=== PATIENT | male | born 1980 | race Caucasian/White ===

== ENCOUNTER 2017-12-08 10:00 | Emergency (ER) | payer OTHER ==
[2017-12-08 10:42] LABS: Basophils % (A) 0 %; Eosinophils # (A) 0.3 k/uL (0-0.7); Eosinophils % (A) 2 %; HCT 50.3 % (39.0-53.0); HGB 16.6 gm/dL (13.0-17.5); Lymphocytes # (A) 1.3 k/uL (1.0-4.8); Lymphocytes % (A) 9 %; MCV 90.6 fL (80.0-100.0); Mean Platelet Volume 6.6; Monocytes # (A) 0.6 k/uL (0-1.0); Monocytes % (A) 4 %; Neutrophils # (A) 11.9 k/uL (1.3-7.7); Neutrophils % (A) 84 %; Platelet Count 294 k/uL (150-450); RBC 5.55 m/uL (4.30-5.90); RDW 12.7 % (11.5-15.5); WBC 14.2 k/uL (3.8-10.6)
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
[2017-12-08 10:53] LABS: Partial Thromboplastin Time 25.7 sec (22.0-30.0); Prothrombin Time 9.8 sec (9.0-12.0)
[2017-12-08 10:54] LABS: ALT 59 U/L (21-72); AST 42 U/L (17-59); Alcohol <10 mg/dL; Alkaline Phosphatase 55 U/L (38-126); Anion Gap 9 mmol/L; Blood Urea Nitrogen 14 mg/dL (9-20); Carbon Dioxide 24 mmol/L (22-30); Chloride 105 mmol/L (98-107); Glucose 103 mg/dL (74-99); Potassium 4.4 mmol/L (3.5-5.1); Sodium 138 mmol/L (137-145); Total Bilirubin 0.9 mg/dL (0.2-1.3); Total Protein 6.9 g/dL (6.3-8.2)
[2017-12-08 11:11] LABS: Creatine Kinase 395 U/L (55-170)
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
[2017-12-08 11:24] LABS: Creatine Kinase MB 7.6 ng/mL (0.0-2.4); Troponin I <0.012 ng/mL (0.000-0.034)
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
[2017-12-08 11:40] LABS: Appearance,Urine Clear (Clear); Bilirubin,Urine Negative (Negative); Blood,Urine Negative (Negative); Color,Urine Yellow; Glucose,Urine (UA) Negative (Negative); Ketones,Urine Negative (Negative); Leukocyte Esterase,Urine Negative (Negative); Nitrite,Urine Negative (Negative); PH, Urine 6.5 (5.0-8.0); Protein,Urine Negative (Negative); Urobilinogen,Urine <2.0 mg/dL (<2.0)
[2017-12-08 11:55] LABS: Amphetamine Screen,Urine Detected (NotDetected); Barbiturate Screen,Urine Not Detected (NotDetected); Benzodiazepines Screen,Urine Detected (NotDetected); Cocaine Screen,Urine Not Detected (NotDetected); Methadone Screen, Urine Not Detected (NotDetected); Opiate Screen,Urine Not Detected (NotDetected); Oxycodone Screen, Urine Not Detected (NotDetected); Phencyclidine Screen,Urine Not Detected (NotDetected); Tricyclic Antidepressant,Urine Not Detected (NotDetected); Urn Cannabinoid Scrn Detected (NotDetected)
[2017-12-08] MEDS ORDERED: MORPHINE SULFATE 4 MG/ML SYRINGE IVP STA (12:14)
[2017-12-08] MEDS ORDERED: KETOROLAC 30 MG/ML 1 ML VIAL IVP STA (12:14)
[2017-12-08 12:27] VITALS: BP 129/80; PULSE 60; RESP 16; TEMP 98.1
== END 2017-12-08 12:27 | disposition home or self-care (01) ==
LOC: EC 10:00
DX: M25.511 Pain in right shoulder (principal); R07.81 Pleurodynia; M54.9 Dorsalgia, unspecified; E07.9 Disorder of thyroid, unspecified; F17.200 Nicotine dependence, unspecified, uncomplicated; Z98.890 Other specified postprocedural states; Z79.899 Other long term (current) drug therapy; Z91.013 Allergy to seafood; V89.2XXA Person injured in unspecified motor-vehicle accident, traffic, initial encounter; Y92.89 Other specified places as the place of occurrence of the external cause
CPT/HCPCS: 36415; 93005; 86900; 86901; 80053; 82550; 82553; 84484; 85025; 85610; 85730; 86850; 81003; 80306; 80320; 72125; 70450; 71260; 74177; 99285; 96374; 96375; J2270; J1885; Q9967

== ENCOUNTER 2018-11-30 19:19 | Emergency (ER) | payer OTHER ==
[2018-11-30 19:33] VITALS: TEMP 99.2
[2018-11-30] MEDS ORDERED: KETOROLAC 30 MG/ML 1 ML VIAL IVP STA (20:27)
[2018-11-30] MEDS ORDERED: methylPREDNISolone SOD SUCCI 125 MG/2 ML VIAL IV STA (20:28)
[2018-11-30] MEDS ORDERED: FAMOTIDINE 20 MG/2 ML VIAL IV STA (20:28)
[2018-11-30] MEDS ORDERED: ONDANSETRON 4 MG/2 ML VIAL IVP STA (20:28)
[2018-11-30] MEDS ORDERED: diphenhydrAMINE 50 MG/ML 1 ML VIAL IVP STA (20:28)
[2018-11-30 20:36] LABS: Basophils # (A) 0.1 k/uL (0-0.2); Basophils % (A) 1 %; Eosinophils # (A) 0.2 k/uL (0-0.7); Eosinophils % (A) 2 %; HGB 14.6 gm/dL (13.0-17.5); Lymphocytes # (A) 2.2 k/uL (1.0-4.8); Lymphocytes % (A) 16 %; MCH 30.3 pg (25.0-35.0); MCHC 33.2 g/dL (31.0-37.0); MCV 91.3 fL (80.0-100.0); Mean Platelet Volume 6.2; Monocytes # (A) 0.6 k/uL (0-1.0); Monocytes % (A) 5 %; Neutrophils # (A) 10.2 k/uL (1.3-7.7); Neutrophils % (A) 76 %; Platelet Count 303 k/uL (150-450); RBC 4.82 m/uL (4.30-5.90); RDW 12.2 % (11.5-15.5); WBC 13.5 k/uL (3.8-10.6)
[2018-11-30 20:48] LABS: Appearance,Urine Clear (Clear); Bilirubin,Urine Negative (Negative); Blood,Urine Negative (Negative); Color,Urine Yellow; Glucose,Urine (UA) Negative (Negative); Ketones,Urine Negative (Negative); Leukocyte Esterase,Urine Negative (Negative); Nitrite,Urine Negative (Negative); Protein,Urine Trace (Negative); Specific Gravity,Urine 1.031 (1.001-1.035)
[2018-11-30 20:52] LABS: ALT 54 U/L (21-72); AST 36 U/L (17-59); African American GFR (CKD) >90 (>60 ml/min/1.73 sqM); Albumin 4.6 g/dL (3.5-5.0); Alkaline Phosphatase 84 U/L (38-126); Amylase 53 U/L (30-110); Anion Gap 11 mmol/L; Blood Urea Nitrogen 15 mg/dL (9-20); Calcium 9.7 mg/dL (8.4-10.2); Carbon Dioxide 22 mmol/L (22-30); Chloride 104 mmol/L (98-107); Glucose 85 mg/dL (74-99); Sodium 137 mmol/L (137-145); Total Bilirubin 1.2 mg/dL (0.2-1.3); Total Protein 7.8 g/dL (6.3-8.2)
[2018-11-30 20:56] LABS: Potassium 4.6 mmol/L (3.5-5.1)
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
[2018-11-30 21:58] VITALS: BP 102/57; PULSE 82; RESP 16
[2018-11-30] MEDS ORDERED: AMOXIC-POT CLAV 875MG STARTER 2 EACH TABLET PO STA (22:09)
--- NOTE | 2018-11-30 22:10 | ED ---
General Adult HPI - General Chief complaint: Abdominal Pain Stated complaint: Abd Pain Time Seen by Provider: 11/30/18 19:52 Source: patient, RN notes reviewed Mode of arrival: ambulatory Limitations: no limitations - History of Present Illness Initial comments: 38-year-old male presents to the emergency department for a chief complaint of abdominal pain. This started 3 days ago. Patient states it is mostly in the lower abdomen and radiates to the left hip. Admits to several episodes of diarrhea. Admits to nausea but denies any vomiting. Denies fevers or chills. Patient has not had this pain before.Patient has no other complaints at this rudy e including shortness of breath, chest pain, vomiting, headache, or visual changes. - Related Data Home Medications Medication Instructions Recorded Confirmed Levothyroxine Sodium [Synthroid] 125 mcg PO DAILY 12/08/17 12/08/17 Phentermine HCl [Adipex-P] 37.5 mg PO DAILY 12/08/17 12/08/17 Previous Rx's Medication Instructions Recorded Amoxicillin/Potassium Clav 1 tab PO Q12HR #20 tab 11/30/18 [Augmentin 875-125 Tablet] Allergies Allergy/AdvReac Type Severity Reaction Status Date / Time shellfish derived [Shellfish] Allergy Unknown Verified 11/30/18 19:33 Review of Systems ROS Statement: Those systems with pertinent positive or pertinent negative responses have been documented in the HPI. ROS Other: All systems not noted in ROS Statement are negative. Past Medical History Past Medical History: Thyroid Disorder History of Any Multi-Drug Resistant Organisms: None Reported Past Surgical History: Orthopedic Surgery Additional Past Surgical History / Comment(s): lymph node left side removed, vidal ateral hip sx, rt rotator cuff sx Past Psychological History: Anxiety Smoking Status: Current every day smoker Past Alcohol Use History: None Reported Past Drug Use History: None Reported General Exam Limitations: no limitations General appearance: alert, in no apparent distress Head exam: Present: atraumatic, normocephalic, normal inspection Eye exam: Present: normal appearance, PERRL, EOMI. Absent: scleral icterus, conjunctival injection, periorbital swelling ENT exam: Present: normal exam, mucous membranes moist Neck exam: Present: normal inspection. Absent: tenderness, meningismus Respiratory exam: Present: normal lung sounds bilaterally. Absent: respiratory distress, wheezes, rales, rhonchi, stridor Cardiovascular Exam: Present: regular rate, normal rhythm, normal heart sounds. Absent: systolic murmur, diastolic murmur, rubs, gallop, clicks GI/Abdominal exam: Present: soft, tenderness (Patient has generalized abdominal tenderness however this is worse in the left and right lower quadrants. No guarding or rebound.), normal bowel sounds. Absent: distended, guarding, rebound, rigid Neurological exam: Present: alert Course Vital Signs 11/30/18 11/30/18 19:25 21:56 Temperature 99.2 F Pulse Rate 103 H 82 Respiratory 18 16 Rate Blood Pressure 140/85 102/57 O2 Sat by Pulse 96 98 Oximetry Medical Decision Making - Medical Decision Making Vitals are Stable. Patient is afebrile. CT of the abdomen and pelvis with contrast shows inflammatory changes of the mid sigmoid colon consistent with acute diverticulitis. No drainable fluid collection is noted. CBC shows a white blood cell count of 13.5. Patient will be started on Augmentin. He will follow up with GI in 1-2 days. I did discuss strict return parameters with patient including worsening abdominal pain. - Lab Data Result diagrams: 11/30/18 20:25 11/30/18 20:25 Lab Results 11/30/18 11/30/18 11/30/18 Range/Units 20:25 20:25 20:25 WBC 13.5 H (3.8-10.6) k/uL RBC 4.82 (4.30-5.90) m/uL Hgb 14.6 (13.0-17.5) gm/dL Hct 44.0 (39.0-53.0) % MCV 91.3 (80.0-100.0) fL MCH 30.3 (25.0-35.0) pg MCHC 33.2 (31.0-37.0) g/dL RDW 12.2 (11.5-15.5) % Plt Count 303 (150-450) k/uL Neutrophils % 76 % Lymphocytes % 16 % Monocytes % 5 % Eosinophils % 2 % Basophils % 1 % Neutrophils # 10.2 H (1.3-7.7) k/uL Lymphocytes # 2.2 (1.0-4.8) k/uL Monocytes # 0.6 (0-1.0) k/uL Eosinophils # 0.2 (0-0.7) k/uL Basophils # 0.1 (0-0.2) k/uL Sodium 137 (137-145) mmol/L Potassium 4.6 (3.5-5.1) mmol/L Chloride 104 (98-107) mmol/L Carbon Dioxide 22 (22-30) mmol/L Anion Gap 11 mmol/L BUN 15 (9-20) mg/dL Creatinine 0.94 (0.66-1.25) mg/dL Est GFR (CKD-EPI)AfAm >90 (>60 ml/min/1.73 sqM) Est GFR (CKD-EPI)NonAf >90 (>60 ml/min/1.73 sqM) Glucose 85 (74-99) mg/dL Plasma Lactic Acid Mike 0.8 (0.7-2.0) mmol/L Calcium 9.7 (8.4-10.2) mg/dL Total Bilirubin 1.2 (0.2-1.3) mg/dL AST 36 (17-59) U/L ALT 54 (21-72) U/L Alkaline Phosphatase 84 (38-126) U/L Total Protein 7.8 (6.3-8.2) g/dL Albumin 4.6 (3.5-5.0) g/dL Amylase 53 (30-110) U/L Lipase 20 L (23-300) U/L Urine Color Urine Appearance (Clear) Urine pH (5.0-8.0) Ur Specific [place] (1.001-1.035) Urine Protein (Negative) Urine Glucose (UA) (Negative) Urine Ketones (Negative) Urine Blood (Negative) Urine Nitrite (Negative) Urine Bilirubin (Negative) Urine Urobilinogen (<2.0) mg/dL Ur Leukocyte Esterase (Negative) 11/30/18 Range/Units 20:25 WBC (3.8-10.6) k/uL RBC (4.30-5.90) m/uL Hgb (13.0-17.5) gm/dL Hct (39.0-53.0) % MCV (80.0-100.0) fL MCH (25.0-35.0) pg MCHC (31.0-37.0) g/dL RDW (11.5-15.5) % Plt Count (150-450) k/uL Neutrophils % % Lymphocytes % % Monocytes % % Eosinophils % % Basophils % % Neutrophils # (1.3-7.7) k/uL Lymphocytes # (1.0-4.8) k/uL Monocytes # (0-1.0) k/uL Eosinophils # (0-0.7) k/uL Basophils # (0-0.2) k/uL Sodium (137-145) mmol/L Potassium (3.5-5.1) mmol/L Chloride (98-107) mmol/L Carbon Dioxide (22-30) mmol/L Anion Gap mmol/L BUN (9-20) mg/dL Creatinine (0.66-1.25) mg/dL Est GFR (CKD-EPI)AfAm (>60 ml/min/1.73 sqM) Est GFR (CKD-EPI)NonAf (>60 ml/min/1.73 sqM) Glucose (74-99) mg/dL Plasma Lactic Acid Mike (0.7-2.0) mmol/L Calcium (8.4-10.2) mg/dL Total Bilirubin (0.2-1.3) mg/dL AST (17-59) U/L ALT (21-72) U/L Alkaline Phosphatase (38-126) U/L Total Protein (6.3-8.2) g/dL Albumin (3.5-5.0) g/dL Amylase (30-110) U/L Lipase (23-300) U/L Urine Color Yellow Urine Appearance Clear (Clear) Urine pH 6.0 (5.0-8.0) Ur Specific [place] 1.031 (1.001-1.035) Urine Protein Trace H (Negative) Urine Glucose (UA) Negative (Negative) Urine Ketones Negative (Negative) Urine Blood Negative (Negative) Urine Nitrite Negative (Negative) Urine Bilirubin Negative (Negative) Urine Urobilinogen 2.0 (<2.0) mg/dL Ur Leukocyte Esterase Negative (Negative) Disposition Clinical Impression: Diverticulitis Disposition: HOME SELF-CARE Condition: Good Instructions (If sedation given, give patient instructions): Diverticulitis (ED), Diverticulitis Diet (ED) Additional Instructions: Please take Augmentin as directed. Take Motrin and Tylenol for pain. Follow up with GI and primary care in 1-2 days. If you are having worsening symptoms such as worsening abdominal pain or fever, return to the emergency department. Prescriptions: Amoxicillin/Potassium Clav [Augmentin 875-125 Tablet] 1 tab PO Q12HR #20 tab Is patient prescribed a controlled substance at d/c from ED?: No Referrals: Nonstaff,Physician [Primary Care Provider] - 1-2 days China Miles MD [STAFF PHYSICIAN] - 1-2 days Time of Disposition: 22:08
== END 2018-11-30 22:17 | disposition home or self-care (01) ==
LOC: EC 19:19
DX: K57.32 Diverticulitis of large intestine without perforation or abscess without bleeding (principal); E07.9 Disorder of thyroid, unspecified; F17.200 Nicotine dependence, unspecified, uncomplicated; Z79.890 Hormone replacement therapy; Z79.899 Other long term (current) drug therapy; Z91.013 Allergy to seafood
CPT/HCPCS: 36415; 80053; 82150; 83605; 83690; 85025; 81003; 74177; 99284; 96374; 96375 ×4; J1200; J2930; J2405; J1885; Q9967

== ENCOUNTER → 2023-02-26 | Outpatient (CLI) | payer OTHER ==
[2023-02-26 12:19] LABS: INR 0.9 (<1.2); Partial Thromboplastin Time 25.9 sec (22.0-30.0); Prothrombin Time 9.8 sec (10.0-12.5)
[2023-02-26 14:37] LABS: HCT 44.3 % (39.6-50.0); HGB 14.9 g/dL (13.0-17.0); MCH 29.1 pg (27.0-32.0); MCHC 33.6 g/dL (32.0-37.0); MCV 86.5 FL (80.0-97.0); Mean Platelet Volume 10.1 FL (9.5-12.2); NRBC Per 100 WBC 0 X 10*3/uL (0.00-0.01); Platelet Count 359 X 10*3/uL (140-440); RBC 5.12 X 10*6/uL (4.40-5.60); RDW 12.4 % (11.5-14.5); WBC 7.75 X 10*3/uL (4.50-10.00)
[2023-02-26 14:39] LABS: Blood Urea Nitrogen 13.5 mg/dL (9.0-27.0); Calcium 9.7 mg/dL (8.7-10.3); Carbon Dioxide 23.2 mmol/L (21.6-31.8); Chloride 103 mmol/L (96-109); Glucose 97 mg/dL (70-110); Potassium 4.5 mmol/L (3.5-5.5); Sodium 137 mmol/L (135-145)
== END | disposition home or self-care (01) ==
LOC: LABWHC1 11:23
PROVIDERS: ATTEND Family Medicine
DX: R73.09 Other abnormal glucose (principal)
CPT/HCPCS: 36415; 80048; 83036; 85027; 85610; 85730

== ENCOUNTER → 2023-02-26 | Outpatient (CLI) | payer OTHER | END | disposition home or self-care (01) | LOC: LABPAT 11:18 | PROVIDERS: ATTEND Oral & Maxillofacial Surgery | DX: Z53.9 Procedure and treatment not carried out, unspecified reason (principal) ==

== ENCOUNTER 2023-07-24 00:32 | Emergency (ER) | payer OTHER ==
[2023-07-24 00:40] VITALS: TEMP 97.8
[2023-07-24] MEDS: ONDANSETRON 4 MG/2 ML VIAL IVP STA (01:11)
[2023-07-24] MEDS: SODIUM CHLORIDE 0.9% 1,000 ML IV STA (01:11)
[2023-07-24 01:32] LABS: ALT 45 U/L (4-49); AST 32 U/L (17-59); African American GFR (CKD) >90 (>60 ml/min/1.73 sqM); Albumin 4.2 g/dL (3.5-5.0); Alkaline Phosphatase 89 U/L (38-126); Amylase 57 U/L (30-110); Anion Gap 6 mmol/L; Blood Urea Nitrogen 13 mg/dL (9-20); Calcium 9.1 mg/dL (8.4-10.2); Carbon Dioxide 21 mmol/L (22-30); Chloride 104 mmol/L (98-107); Glucose 107 mg/dL (74-99); Lipase 23 U/L (23-300); Non-African American GFR(CKD) 82 (>60 ml/min/1.73 sqM); Potassium 4.3 mmol/L (3.5-5.1); Sodium 131 mmol/L (137-145); Total Bilirubin 1.3 mg/dL (0.2-1.3); Total Protein 6.9 g/dL (6.3-8.2)
[2023-07-24 02:08] LABS: Basophils % (A) 0 %; Eosinophils # (A) 0.1 k/uL (0-0.7); Eosinophils % (A) 1 %; HCT 45.3 % (39.0-53.0); HGB 15.1 gm/dL (13.0-17.5); Lymphocytes # (A) 1.1 k/uL (1.0-4.8); Lymphocytes % (A) 11 %; MCH 28.9 pg (25.0-35.0); MCHC 33.4 g/dL (31.0-37.0); MCV 86.7 fL (80.0-100.0); Mean Platelet Volume 8.9; Monocytes # (A) 0.4 k/uL (0-1.0); Monocytes % (A) 4 %; Neutrophils # (A) 7.6 k/uL (1.3-7.7); Neutrophils % (A) 82 %; Platelet Count 361 k/uL (150-450); RBC 5.22 m/uL (4.30-5.90); RDW 12.7 % (11.5-15.5); WBC 9.3 k/uL (3.8-10.6)
[2023-07-24] MEDS: SODIUM CHLORIDE 0.9% 1,000 ML IV ONE (02:17)
[2023-07-24] MEDS: DICYCLOMINE 10 MG CAP PO STA (02:17)
[2023-07-24 02:25] VITALS: RESP 16
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
[2023-07-24 03:14] LABS: Appearance,Urine Clear (Clear); Bilirubin,Urine 1+ (Negative); Blood,Urine Negative (Negative); Cellular Casts,Urine 3 /lpf (0); Color,Urine Yellow; Glucose,Urine (UA) Negative (Negative); Hyaline Casts,Urine 23 /lpf (0-2); Ketones,Urine Trace (Negative); Leukocyte Esterase,Urine Negative (Negative); Mucus,Urine Many /hpf; Nitrite,Urine Negative (Negative); Protein,Urine 1+ (Negative); RBC,Urine 1 /hpf (0-5); Urobilinogen,Urine <2.0 mg/dL (<2.0); WBC,Urine 3 /hpf (0-5)
[2023-07-24 03:59] VITALS: BP 119/71; PULSE 89
== END 2023-07-24 03:59 | disposition home or self-care (01) ==
LOC: EC 00:32
DX: R11.10 Vomiting, unspecified (principal); R19.7 Diarrhea, unspecified; Z91.013 Allergy to seafood
CPT/HCPCS: 36415; 80053; 82150; 83605; 83690; 85025; 81001; 87324; 99284; 96374; 96361 ×2; J2405

== ENCOUNTER → 2024-05-10 | Outpatient (CLI) | payer OTHER ==
[2024-05-10 14:56] LABS: Basophils # (A) 0.06 X 10*3/uL (0.00-0.10); Basophils % (A) 0.8 %; Eosinophils % (A) 2.7 %; HCT 43.3 % (39.6-50.0); HGB 14.5 g/dL (13.0-17.0); Lymphocytes # (A) 3.06 X 10*3/uL (0.90-5.00); Lymphocytes % (A) 41.1 %; MCH 29.9 pg (27.0-32.0); MCHC 33.5 g/dL (32.0-37.0); MCV 89.3 FL (80.0-97.0); Mean Platelet Volume 9.9 FL (9.5-12.2); Monocytes # (A) 0.53 X 10*3/uL (0.20-1.00); Monocytes % (A) 7.1 %; NRBC Per 100 WBC 0 X 10*3/uL (0.00-0.01); Neutrophils # (A) 3.56 X 10*3/uL (1.80-7.70); Neutrophils % (A) 47.8 %; Platelet Count 379 X 10*3/uL (140-440); RBC 4.85 X 10*6/uL (4.40-5.60); RDW 12.4 % (11.5-14.5); WBC 7.45 X 10*3/uL (4.50-10.00)
[2024-05-10 15:48] LABS: Chol/HDL Ratio 4.26 Ratio; Estradiol <20.0 pg/mL; LDL Cholesterol,Calculated 123.6 mg/dL (0.0-131.0); VLDL Calculation 17.18 mg/dL (5.00-40.00)
[2024-05-10 15:49] LABS: ALT 39 U/L (10-49); AST 28 U/L (14-35); Albumin 4.4 g/dL (3.8-4.9); Albumin/Globulin Ratio 1.91 Ratio (1.60-3.17); Alkaline Phosphatase 99 U/L (41-126); BUN/Creat Ratio 13.67 Ratio (12.00-20.00); Blood Urea Nitrogen 16.4 mg/dL (9.0-27.0); Calcium 9.4 mg/dL (8.7-10.3); Carbon Dioxide 27.3 mmol/L (21.6-31.8); Chloride 105 mmol/L (96-109); Globulin 2.3 g/dL (1.6-3.3); Glucose 95 mg/dL (70-110); Potassium 4.8 mmol/L (3.5-5.5); Sodium 141 mmol/L (135-145); Total Bilirubin 0.4 mg/dL (0.3-1.2); Total Protein 6.7 g/dL (6.2-8.2)
== END | disposition home or self-care (01) ==
LOC: LABWHC1 08:33
PROVIDERS: ATTEND Family Medicine
DX: Z00.00 Encounter for general adult medical examination without abnormal findings (principal); Z12.5 Encounter for screening for malignant neoplasm of prostate; E03.9 Hypothyroidism, unspecified; E53.8 Deficiency of other specified B group vitamins; E29.1 Testicular hypofunction
CPT/HCPCS: 36415; 80053; 80061; 82607; 82670; 84153; 84402; 84403; 84443; 85025